=== PATIENT | female | born 1990 | race Caucasian/White ===

== ENCOUNTER 2019-03-08 13:12 | Inpatient (IN) | payer OTHER ==
[2019-03-08 16:00] VITALS: BMI 21.2
--- NOTE | 2019-03-08 16:54 | HP ---
COWS - Scale Resting Pulse: 0= IN 80 or Below Sweatin= Chills/Flushing Restless Observation: 1= Difficult to Sit Still Pupil Size: 0= Normal to Room Light Bone or Joint Aches: 1= Mild Discomfort Runny Nose/ Eye Tearin= None GI Upset > 30mins: 2= Nausea/Diarrhea Tremor Observation: 2= Slight Tremor Visible Yawning Observation: 0= None Anxiety or Irritability: 2=Irritable/Anxious Goose Flesh Skin: 3=Piloerection COWS Score: 12 CIWA Score - Admission Criteria OASAS Guidelines: Admission for Medically Managed Detox: Requires at least one of the followin. CIWA greater than 12 2. Seizures within the past 24 hours 3. Delirium tremens within the past 24 hours 4. Hallucinations within the past 24 hours 5. Acute intervention needed for co occurring medical disorder 6. Acute intervention needed for co occurring psychiatric disorder 7. Severe withdrawal that cannot be handled at a lower level of care (continued vomiting, continued diarrhea, abnormal vital signs) requiring intravenous medication and/or fluids 8. Admitting History and Physical - Admission Chief Complaint: Wants to stay clean off Heroine and cocaine use History of Present Illness: Pt is a 28 yo F with PMHx of SCD presenting for dtox from Heroin and cocaine use Pt has been using iv heroine/cocaine since . Has had abscesses on hands in pst. Now injects in neck Wants detox, rehab then housing. Said to have been HIV neg Dec 05, when locked, Neg PPD Heroine: Started at 15 Uses 3-4 bundles, iv route, does not share needles or reuse needled Has had detox [facility] Jan 15, 2019- 5 days Relapsed immediately after leaving after detox uses alone Cocaine: Started at 15 3-4 g use iv does not share needles or reuse needled Has had detox [facility] Jan 15, 2019- 5 days Relapsed immediately after leaving after detox uses alone Never used benzos, or methadone Used one pill [id number] days Marijuana: Started at 15 Last used on wednesday/wednesday when she was partying before starting rehab Methadone in system Denies using methadone knowingly except if at the [facility] party Cigarettes; Started at 15 1PPD Pt had been in foster- aged out at 19 11th grade HS 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 [id number] Last job was 1 year ago No problems with law Locked up Dec 05 for stealing to get high Dec 15, 2018 PSHx: None Social hx: Homeless x 4 years Reprod: (11year old son) LMP- pt says she has very irregular menses with IUD (possibly copper) cannot remeber date History Source: Patient Limitations to Obtaining History: No Limitations - Past Medical History ...: 1 ...Para: 1 (8 year old son) - Smoking History Smoking history: Current some day smoker Have you smoked in the past 12 months: Yes Aproximately how many cigarettes per day: 20 - Alcohol/Substance Use Hx Alcohol Use: No History of Substance Use: reports: Cocaine, Heroin Date of Last Use: 03/07/19 - Social History Do you think of yourself as: Other (Masturbation-3years since sex with a male) ADL: Independent History of Recent Travel: No Admission [facility] - [facility] Allergies/Adverse Reactions: Allergies Allergy/AdvReac Type Severity Reaction Status Date / Time No Known Allergies Allergy Verified 03/08/19 15:55 Exam Limitations: No Limitations - Ebola screening Have you traveled outside of the country in the last 21 days: No Have you had contact with anyone from an Ebola affected area: No Do you have a fever: No - Review of Systems Constitutional: Chills, Fever EENT: reports: Other (Dental problems) Respiratory: reports: No Symptoms reported Cardiac: reports: No Symptoms Reported GI: reports: No Symptoms Reported, Nausea : reports: No Symptoms Reported Musculoskeletal: reports: No Symptoms Reported Integumentary: reports: Other (pinches skin on R cheek and ear when high with healing scabs) Neuro: reports: Tremors Endocrine: reports: No Symptoms Reported Hematology: reports: No Symptoms Reported Psychiatric: reports: No Sypmtoms Reported Patient History - Patient Medical History Hx Anemia: No Hx Asthma: No Hx Chronic Obstructive Pulmonary Disease (COPD): No Hx Cancer: No Hx Cardiac Disorders: No Hx Congestive Heart Failure: No Hx Hypertension: No Hx Hypercholesterolemia: No Hx Pacemaker: No HX Cerebrovascular Accident: No Hx Seizures: No Hx Dementia: No Hx Diabetes: No Hx Gastrointestinal Disorders: No Hx Liver Disease: No Hx Genitourinary Disorders: No Hx Sexually Transmitted Disorders: No Hx Renal Disease (ESRD): No Hx Thyroid Disease: No Hx Human Immunodeficiency Virus (HIV): No Hx Hepatitis C: No Hx Depression: No - Patient Surgical History Past Surgical History: No Hx Neurologic Surgery: No Hx Cataract Extraction: No Hx Cardiac Surgery: No Hx Lung Surgery: No Hx Breast Surgery: No Hx Breast Biopsy: No Hx Abdominal Surgery: No Hx Appendectomy: No Hx Cholecystectomy: No Hx Genitourinary Surgery: No Hx Section: No Hx Orthopedic Surgery: No Hx Hysterectomy: No Anesthesia Reaction: No - PPD History Previous Implant?: Yes Documented Results: Negative w/o proof PPD to be Administered?: Yes - Reproductive History Patient is a Female of Child Bearing Age (11 -55 yrs old): Yes Patient : No - Smoking Cessation Smoking history: Current every day smoker Have you smoked in the past 12 months: Yes Aproximately how many cigarettes per day: 20 Initiated information on smoking cessation: Yes 'Breaking Loose' booklet given: 03/08/19 - Substance & Tx. History Hx Alcohol Use: No Hx Substance Use: Yes Substance Use Type: Cocaine, Heroin, Marijuana, Opiates - Substances abused Cocaine Substance route: Injection Frequency: Daily Amount used: 3-4 bundles Age of first use: 15 Date of last use: 03/07/19 Heroin Substance route: Injection Frequency: Daily Amount used: 3-4 bundles Age of first use: 15 Date of last use: 03/07/19 Admission Physical Exam [facility] - Vital Signs Vital Signs: Vital Signs - 24 hr 03/08/19 15:56 Temperature 97.0 F L Pulse Rate 60 Respiratory 18 Rate Blood Pressure 134/80 - Physical General Appearance: Yes: Anxious HEENTM: Yes: EOMI Respiratory: Yes: Chest Non-Tender, Lungs Clear Neck: Yes: Other (Axillary nodes present) Cardiology: Yes: Regular Rhythm, Regular Rate, S1, S2 Abdominal: Yes: Normal Bowel Sounds Genitourinary: Yes: Within Normal Limits Back: Yes: Within Normal Limits Musculoskeletal: Yes: Within Normal Limits Extremities: Yes: Within Normal Limits Neurological: Yes: Fully Oriented, Alert, Motor Strength 5/5 Integumentary: Yes: Within Normal Limits (healing excoriation R cheek and R ear) , Other Cleared for Admission [facility] - Detox or Rehab [facility] Level of Care: Medically Managed Detox Regimen/Protocol: Methadone Claeared for Rehab Admission: No Screened but not Admitted - Documentation of Visit Screened but not Admitted: No Left Prior to Completion of Assessment: No Insurance Authorization Denied: No Patient Does Not Meet Criteria for Admission: No Alternative Treatment/[facility] Info Provided: No Breathalyzer - Breathalyzer Breathalyzer: 0 Vital Signs - Vital Signs Vital signs refused: No Temperature: 97.0 F Temperature source: Oral Pulse Rate: 60 Respiratory Rate: 18 Blood Pressure: 134/80 Blood Pressure position: Sitting - Height Height: 1.57 m - Weight Weight: 52.617 kg - BMI Body Mass Index (BMI): 21.2 - Bowel Function Bowel Movement: Yes POC Urine test - Control test control: No Urine Drug Screen - Results Drug screen NEGATIVE: No Urine drug screen results: JENISE-Cocaine, MTD-Methadone, BZO-Benzodiazepines Inpatient Rehab Admission - Rehab Decision to Admit Inpatient rehab admission?: No
[2019-03-08] MEDS ORDERED: METHOCARBAMOL 500 MG TABLET PO PRN (17:24)
[2019-03-08] MEDS ORDERED: ACETAMINOPHEN 325 MG TABLET (FP) PO PRN ×2 (17:24)
[2019-03-08] MEDS ORDERED: cloNIDine HCL 0.1 MG TABLET PO PRN (17:24)
[2019-03-08] MEDS ORDERED: NICOTINE POLACRILEX 4 MG GUM BUC PRN (17:24)
[2019-03-08] MEDS ORDERED: MAGNESIUM HYDROX 2400MG/30ML ORAL SUSPENSION 30 ML CUP PO PRN (17:24)
[2019-03-08] MEDS ORDERED: METHADONE HCL 10 MG TABLET (FOR DETOX USE ONLY) PO ONE (17:24)
[2019-03-08] MEDS ORDERED: MAGNESIUM CITRATE 300 ML BOTTLE PO PRN (17:24)
[2019-03-08] MEDS ORDERED: MAG HYDROX/AL HYDROX/SIMETH 30 ML UNIT-DOSE CUP PO PRN (17:24)
[2019-03-08] MEDS ORDERED: BISMUTH SUBSALICYLATE 524 MG/30 ML UD PO PRN (17:24)
[2019-03-08] MEDS ORDERED: MENTHOL/PHENOL 1 EACH UD MM PRN (17:24)
[2019-03-08] MEDS ORDERED: NICOTINE POLACRILEX 2 MG GUM BUC PRN (17:24)
[2019-03-08] MEDS ORDERED: IBUPROFEN 400 MG TABLET (FP) PO PRN ×2 (17:24→17:28)
[2019-03-08] MEDS: THIAMINE HCL 100 MG TABLET (FP) PO SCH (22:12)
[2019-03-08] MEDS: MELATONIN 5 MG TABLETS PO PRN (22:14)
[2019-03-08] MEDS: hydrOXYzine PAMOATE 25 MG CAPSULE (FP) PO PRN (22:14)
--- NOTE | 2019-03-09 08:11 | PN ---
Teaching Attending Note Name of Resident: Atiya Brownlee ATTENDING PHYSICIAN STATEMENT I saw and evaluated the patient. I reviewed the resident's note and discussed the case with the resident. I agree with the resident's findings and plan as documented. SUBJECTIVE: Agree with resident's subjective findings OBJECTIVE: Agree with resident's objective findings ASSESSMENT AND PLAN: Agree with plan to admit patient. Dr. Muro
[2019-03-09] MEDS ORDERED: METHADONE HCL 5 MG TABLET (FOR DETOX USE ONLY) PO ONE (10:00)
[2019-03-09] MEDS: PRENATAL VITAMINS W/ FOLIC ACID TABLET (FP) PO SCH (10:24)
--- NOTE | 2019-03-09 12:00 | PN ---
[facility] COWS - Scale Resting Pulse: 0= [place] 80 or Below Sweatin= Chills/Flushing Restless Observation: 1= Difficult to Sit Still Pupil Size: 0= Normal to Room Light Bone or Joint Aches: 1= Mild Discomfort Runny Nose/ Eye Tearin= Runny Nose/Eyes GI Upset > 30mins: 1= Stomach Cramp Tremor Observation of Outstretched Hands: 1= Tremor [place], Not Seen Yawning Observation: 1= 1-2x During Session Anxiety or Irritability: 2=Irritable/Anxious Goose Flesh Skin: 0=Smooth Skin COWS Score: 10 S Progress Note (SOAP) Subjective: sweats shakes interrupted sleep body aches irritable chills Objective: 03/09/19 11:59 Vital Signs Temperature 98.1 F 03/09/19 10:30 Pulse Rate 56 L 03/09/19 10:30 Respiratory Rate 18 03/09/19 10:30 Blood Pressure 111/53 L 03/09/19 10:30 O2 Sat by Pulse Oximetry (%) labs pending [id number] ambulating no acute distress Assessment: 03/09/19 12:00 withdrawal sx Plan: continue detox increase fluids pending labs
[2019-03-09] MEDS: BACITRACIN 15 GM TUBE TOPICAL OINTMENT TP SCH (15:45)
[2019-03-09] MEDS: hydrOXYzine PAMOATE 25 MG CAPSULE (FP) PO PRN (21:54)
[2019-03-09] MEDS: THIAMINE HCL 100 MG TABLET (FP) PO SCH (21:54)
[2019-03-09] MEDS: MELATONIN 5 MG TABLETS PO PRN (21:55)
[2019-03-10] MEDS: PRENATAL VITAMINS W/ FOLIC ACID TABLET (FP) PO SCH (09:38)
[2019-03-10] MEDS: BACITRACIN 15 GM TUBE TOPICAL OINTMENT TP SCH (09:39)
[2019-03-10] MEDS ORDERED: METHADONE HCL 10 MG TABLET (FOR DETOX USE ONLY) PO ONE (10:00)
[2019-03-10] MEDS: hydrOXYzine PAMOATE 25 MG CAPSULE (FP) PO PRN ×2 (14:40→22:02)
--- NOTE | 2019-03-10 16:08 | PN ---
[facility] COWS - Scale Resting Pulse: 0= ID 80 or Below Sweatin= No chills or Flushing Restless Observation: 0= Sits Still Pupil Size: 0= Normal to Room Light Bone or Joint Aches: 1= Mild Discomfort Runny Nose/ Eye Tearin= Nasal Congestion GI Upset > 30mins: 0= None Tremor Observation of Outstretched Hands: 1= Tremor [place], Not Seen Yawning Observation: 0= None Anxiety or Irritability: 1=Feels Anxious/Irritable Goose Flesh Skin: 0=Smooth Skin COWS Score: 4 BHS Progress Note (SOAP) Subjective: alert,irritable,anxious,interrupted sleep Objective: 03/10/19 16:07 Vital Signs Temperature 98.4 F 03/10/19 13:31 Pulse Rate 66 03/10/19 13:31 Respiratory Rate 18 03/10/19 13:31 Blood Pressure 96/63 03/10/19 13:31 O2 Sat by Pulse Oximetry (%) Assessment: 03/10/19 16:07 withdrawal symptom Plan: continue detox methadone regimen,discharge in am
[2019-03-10] MEDS: THIAMINE HCL 100 MG TABLET (FP) PO SCH (22:00)
[2019-03-10] MEDS: MELATONIN 5 MG TABLETS PO PRN (22:01)
[2019-03-11] MEDS ORDERED: METHADONE HCL 5 MG TABLET (FOR DETOX USE ONLY) PO ONE (06:00)
[2019-03-11 09:41] VITALS: BP 100/59; PULSE 65; TEMP 97.8
--- NOTE | 2019-03-11 15:21 | DS ---
[facility] Detox Discharge Summary Admission Date: 03/08/19 Discharge Date: 03/11/19 - History Present History: Cocaine Dependence, Opioid Dependence Additional Comments: Pt is medically cleared and is discharged today. Pt completed the detox protocol. Pt is instructed to follow-up with [facility] outpatient program and also to follow-up with her pmd. Pt verbalized understanding. Pt is alert and oriented x3 and in no respiratory distress. Pertinent Past History: H/O heroin and cocaine use disorder. - Physical Exam Results Vital Signs: Vital Signs Temperature 97.8 F 03/11/19 09:40 Pulse Rate 65 03/11/19 09:40 Respiratory Rate 18 03/11/19 09:40 Blood Pressure 100/59 L 03/11/19 09:40 O2 Sat by Pulse Oximetry (%) Vital Signs 03/11/19 09:40 Temperature 97.8 F Pulse Rate 65 Respiratory 18 Rate Blood Pressure 100/59 L Pertinent Admission Physical Exam Findings: withdrawal symptoms. - Treatment Hospital Course: Detox Protocol Followed, Detoxed Safely, Responded well, Discharged Condition Good - Medication Discharge Medications: Ambulatory Orders NK [No Known Home Medication] 03/08/19 - Diagnosis (1) Heroin use disorder, mild, abuse Status: Acute (2) Cocaine use disorder, mild, abuse Status: Acute - AMA Did Patient Leave Against Medical Advice: No
== END 2019-03-11 09:57 | disposition home or self-care (01) | DRG 773 ==
LOC: YASAS 13:12 → Y6N 18:12 → Y3N 03-09 21:58
PROVIDERS: ADMIT Allergy & Immunology; ATTEND Allergy & Immunology
PROC: HZ2ZZZZ Detoxification Services for Substance Abuse Treatment (ICD-10-PCS; principal; 2019-03-08)
DX: F11.23 Opioid dependence with withdrawal (principal); F14.20 Cocaine dependence, uncomplicated; F12.10 Cannabis abuse, uncomplicated; F17.210 Nicotine dependence, cigarettes, uncomplicated; N92.5 Other specified irregular menstruation; Z97.5 Presence of (intrauterine) contraceptive device
CPT/HCPCS: 81025; J0735

== ENCOUNTER 2021-05-23 17:26 | Inpatient (IN) | payer OTHER ==
[2021-05-23 19:19] VITALS: BMI 21.5
[2021-05-24] MEDS ORDERED: MAGNESIUM HYDROX 2400MG/30ML ORAL SUSPENSION 30 ML CUP PO PRN (00:09)
[2021-05-24] MEDS ORDERED: IBUPROFEN 400 MG TABLET (FP) PO PRN (00:09)
[2021-05-24] MEDS ORDERED: BISMUTH SUBSALICYLATE 524 MG/30 ML PO PRN (00:09)
[2021-05-24] MEDS ORDERED: ACETAMINOPHEN 325 MG TABLET (FP) PO PRN ×2 (00:09)
[2021-05-24] MEDS ORDERED: MAGNESIUM CITRATE 300 ML BOTTLE PO PRN (00:09)
[2021-05-24] MEDS ORDERED: NICOTINE POLACRILEX 2 MG GUM BUC PRN (00:09)
[2021-05-24] MEDS ORDERED: MENTHOL/PHENOL 1 EACH UD MM PRN (00:09)
[2021-05-24] MEDS ORDERED: hydrOXYzine PAMOATE 25 MG CAPSULE (FP) PO PRN (00:09)
[2021-05-24] MEDS ORDERED: ONDANSETRON *ODT* 4 MG TABLET SL PRN (00:09)
[2021-05-24] MEDS ORDERED: methaDONE HCL 10 MG TABLET (FOR DETOX USE ONLY) PO ONE (00:09)
[2021-05-24] MEDS ORDERED: MAG HYDROX/AL HYDROX/SIMETH 30 ML UNIT-DOSE CUP PO PRN (00:09)
[2021-05-24] MEDS ORDERED: diazePAM 5 MG TABLET PO ONE (00:23)
[2021-05-24] MEDS: guaiFENesin 200 MG/10 ML 10 ML UNIT-DOSE CUPS PO SCH ×4 (01:11→23:31)
[2021-05-24] MEDS: MELATONIN 5 MG TABLETS PO PRN (01:11)
[2021-05-24] MEDS: CEPHALEXIN MONOHYDRATE 500 MG CAPSULE (UD) PO SCH ×4 (06:18→23:30)
[2021-05-24] MEDS: PRENATAL VITAMINS W/ FOLIC ACID TABLET (FP) PO SCH (11:13)
[2021-05-24] MEDS: BACITRACIN 0.9 GM PACKET TP SCH ×2 (11:13→23:30)
[2021-05-24] MEDS: methaDONE HCL 10 MG TABLET (FOR DETOX USE ONLY) PO ONE ×2 (11:49→13:27)
[2021-05-24] MEDS: METHOCARBAMOL 500 MG TABLET PO PRN (17:42)
[2021-05-24] MEDS: NICOTINE 10 MG CARTRIDGE (INHALER) IH PRN (17:55)
[2021-05-24] MEDS: cloNIDine HCL 0.1 MG TABLET PO PRN (19:05)
[2021-05-24] MEDS: THIAMINE HCL 100 MG TABLET (FP) PO SCH (23:30)
[2021-05-25] MEDS: CEPHALEXIN MONOHYDRATE 500 MG CAPSULE (UD) PO SCH ×4 (06:35→23:37)
[2021-05-25] MEDS: BACITRACIN 0.9 GM PACKET TP SCH ×2 (10:45→22:24)
[2021-05-25] MEDS: PRENATAL VITAMINS W/ FOLIC ACID TABLET (FP) PO SCH (10:45)
[2021-05-25] MEDS ORDERED: methaDONE HCL 10 MG TABLET (FOR DETOX USE ONLY) ONE (11:12)
[2021-05-25] MEDS: guaiFENesin 200 MG/10 ML 10 ML UNIT-DOSE CUPS PO SCH ×3 (11:19→23:37)
[2021-05-25] MEDS: cloNIDine HCL 0.1 MG TABLET PO PRN (17:07)
[2021-05-25] MEDS: THIAMINE HCL 100 MG TABLET (FP) PO SCH (22:24)
[2021-05-26] MEDS: CEPHALEXIN MONOHYDRATE 500 MG CAPSULE (UD) PO SCH ×4 (05:07→23:58)
[2021-05-26] MEDS ORDERED: methaDONE HCL 10 MG TABLET (FOR DETOX USE ONLY) PO ONE (10:00)
[2021-05-26] MEDS: PRENATAL VITAMINS W/ FOLIC ACID TABLET (FP) PO SCH (10:33)
[2021-05-26] MEDS: BACITRACIN 0.9 GM PACKET TP SCH ×2 (10:33→22:40)
[2021-05-26] MEDS: METHOCARBAMOL 500 MG TABLET PO PRN (10:33)
[2021-05-26] MEDS: guaiFENesin 200 MG/10 ML 10 ML UNIT-DOSE CUPS PO SCH (10:33)
[2021-05-26] MEDS: cloNIDine HCL 0.1 MG TABLET PO PRN (10:34)
[2021-05-26] MEDS: NICOTINE 10 MG CARTRIDGE (INHALER) IH PRN (12:32)
[2021-05-26] MEDS ORDERED: guaiFENesin 200 MG/10 ML 10 ML UNIT-DOSE CUPS PO PRN (15:16)
[2021-05-26] MEDS: THIAMINE HCL 100 MG TABLET (FP) PO SCH (22:40)
[2021-05-26] MEDS: MELATONIN 5 MG TABLETS PO PRN (22:40)
[2021-05-27] MEDS: CEPHALEXIN MONOHYDRATE 500 MG CAPSULE (UD) PO SCH ×2 (06:25→12:35)
[2021-05-27] MEDS ORDERED: methaDONE HCL 10 MG TABLET (FOR DETOX USE ONLY) ONE ×2 (08:38→10:19)
[2021-05-27] MEDS: BACITRACIN 0.9 GM PACKET TP SCH (10:20)
[2021-05-27] MEDS: METHOCARBAMOL 500 MG TABLET PO PRN (10:21)
[2021-05-27] MEDS: PRENATAL VITAMINS W/ FOLIC ACID TABLET (FP) PO SCH (10:26)
[2021-05-27 12:52] VITALS: BP 111/73; PULSE 86; TEMP 97.2
[2021-05-28] MEDS ORDERED: methaDONE HCL 10 MG TABLET (FOR DETOX USE ONLY) PO ONE (10:00)
== END 2021-05-27 13:30 | disposition home or self-care (01) | DRG 773 ==
LOC: YASAS 17:26 → Y3N 22:12
PROVIDERS: ADMIT Allergy & Immunology; ATTEND Allergy & Immunology
PROC: HZ2ZZZZ Detoxification Services for Substance Abuse Treatment (ICD-10-PCS; principal; 2021-05-23)
DX: F11.23 Opioid dependence with withdrawal (principal); F14.20 Cocaine dependence, uncomplicated; F12.10 Cannabis abuse, uncomplicated; F17.210 Nicotine dependence, cigarettes, uncomplicated; F31.9 Bipolar disorder, unspecified; L89.892 Pressure ulcer of other site, stage 2; L98.8 Other specified disorders of the skin and subcutaneous tissue; D57.3 Sickle-cell trait
CPT/HCPCS: 81025; C9803; J0735; U0003; U0005

== ENCOUNTER 2021-06-26 20:33 | Inpatient (IN) | payer OTHER ==
[2021-06-26] MEDS ORDERED: VANCOMYCIN 1 GM in D5W (PRE-DOCKED) 1,000 MG/250 ML IVPB ONE (21:16)
[2021-06-26] MEDS ORDERED: PIPERACILLIN/TAZOB 4.5 GM 4.5 GM in DEXTROSE 5%-WATER 100 ML IVPB ONE (21:17)
[2021-06-26] MEDS ORDERED: PIPERACILLIN/TAZOB 4.5 GM 4.5 GM/100 ML BAG IVPB ONE (21:22)
[2021-06-26] MEDS ORDERED: VANCOMYCIN 1 GRAM (PRE-DOCKED) 1,000 MG/250 ML BAG IVPB ONE (21:22)
[2021-06-26] MEDS ORDERED: SODIUM CHLORIDE 0.9% 500 ML INFUS.BAG IV ONE ×2 (21:51→23:12)
[2021-06-26] MEDS ORDERED: ACETAMINOPHEN 1000 MG/100 ML BAG IVPB ONE (22:13)
[2021-06-26] MEDS ORDERED: ACETAMINOPHEN INJECTION 100 ML IVPB ONE (22:14)
[2021-06-26 22:22] LABS: BASO % 0.2 % (0-2.0); EOS % 0.7 % (0-4.5); HEMATOCRIT 27.8 % (32.4-45.2); HEMOGLOBIN 9.4 GM/dL (10.7-15.3); LYMPH % 14.8 % (8-40); MCH 24.4 pg (25.7-33.7); MCHC 33.8 g/dl (32.0-36.0); MEAN CELL VOLUME 72.2 fl (80-96); MEAN PLT VOLUME 7.7 fl (7.5-11.1); MONO % 9.7 % (3.8-10.2); NEUT % 74.6 % (42.8-82.8); PLATELET COUNT 272 10^3/uL (134-434); RBC 3.85 M/mm3 (3.60-5.2); RDW 17.6 % (11.6-15.6); VENOUS BASE EXCESS 3.7 mmol/L (-2-2); VENOUS O2 SATURATION 81.4 % (70-80); VENOUS PCO2 44.7 mmHg (38-52); VENOUS PH 7.421 (7.310-7.410); WHITE BLOOD COUNT 8.2 K/mm3 (4.0-10.0)
[2021-06-26 22:30] LABS: INR 1.07 (0.83-1.09); PROTHROMBIN TIME (PATIENT) 12.3 SEC (9.7-13.0)
[2021-06-26 22:33] LABS: ACTIVATED PTT 32.8 SECONDS (25.2-36.5)
[2021-06-26 22:42] LABS: CHLORIDE 107 mmol/L (98-107); SODIUM 143 mmol/L (136-145)
[2021-06-26 22:44] LABS: ALBUMIN 3.4 g/dl (3.4-5.0); ANION GAP 7 MMOL/L (8-16); BLOOD UREA NITROGEN 10.7 mg/dL (7-18); CALCIUM 9.2 mg/dL (8.5-10.1); CO2 29 mmol/L (21-32); GLUCOSE,RANDOM 80 mg/dL (74-106)
[2021-06-26 22:48] LABS: SGOT/AST 22 U/L (15-37); SGPT/ALT 22 U/L (13-61)
[2021-06-26 22:49] LABS: BILIRUBIN,TOTAL 0.2 mg/dL (0.2-1); TOT PROT 7.5 g/dl (6.4-8.2)
[2021-06-26 22:50] LABS: ALK PHOS 76 U/L (45-117)
[2021-06-26 22:52] LABS: LACTIC ACID 2.6 mmol/L (0.4-2.0)
[2021-06-26] MEDS ORDERED: KETOROLAC TROMETHAMINE 30 MG/1 ML VIAL IVPUSH ONE (23:12)
[2021-06-26] MEDS ORDERED: KETOROLAC TROMETHAMINE 30 MG/1 ML VIAL ONE (23:14)
[2021-06-26] MEDS ORDERED: DICYCLOMINE HCL 20 MG TABLET PO ONE (23:18)
[2021-06-26 23:26] LABS: ERYTHROCYTE SEDIMENTATION RATE 48 mm/hr (0-20)
[2021-06-26] MEDS ORDERED: DICYCLOMINE HCL 10 MG CAPSULE ONE (23:51)
[2021-06-27] MEDS ORDERED: ACETAMINOPHEN 325 MG TABLET (FP) PO PRN (01:11)
[2021-06-27] MEDS: SODIUM CHLORIDE 1,000 ML IV SCH ×3 (03:51→13:14)
[2021-06-27 05:24] VITALS: BMI 21.4
[2021-06-27] MEDS ORDERED: VANCOMYCIN 1 GRAM (PRE-DOCKED) 1,000 MG/250 ML BAG IVPB SCH ×2 (06:00→20:00)
[2021-06-27] MEDS ORDERED: VANCOMYCIN 1 GM in D5W (PRE-DOCKED) 1,000 MG/250 ML IVPB SCH (06:00)
[2021-06-27] MEDS ORDERED: SODIUM CHLORIDE 1,000 ML IV STA (06:27)
[2021-06-27] MEDS: NICOTINE 21 MG/24 HOURS TOPICAL PATCH TD SCH ×2 (10:15→10:20)
[2021-06-27] MEDS: ENOXAPARIN NA (PORCINE) 40 MG/0.4 ML DISP.SYRIN SQ SCH (10:15)
[2021-06-27 12:39] LABS: EPI CELLS 21 /uL (0-25.1); HYALINE CASTS 1 /uL (0-3.1); PH,URINE 6.5 (5.0-8.0); URINE APPEARANCE CLEAR; URINE BACTERIA 70 /uL (0-1359); URINE BILIRUBIN NEGATIVE (NEGATIVE); URINE COLOR YELLOW; URINE GLUCOSE (UA) NEGATIVE (NEGATIVE); URINE KETONE NEGATIVE (NEGATIVE); URINE LEUK ESTERASE TRACE (NEGATIVE); URINE NITRITE NEGATIVE (NEGATIVE); URINE PROTEIN NEGATIVE (NEGATIVE); URINE RBC 3 /uL (0-23.9); URINE WBC 39 /uL (0-25.8)
[2021-06-27 12:59] LABS: YEAST NON SEEN (NEGATIVE)
[2021-06-27] MEDS ORDERED: methaDONE HCL 10 MG TABLET PO ONE (14:46)
[2021-06-27 17:14] LABS: BASO % 0.6 % (0-2.0); EOS % 1.7 % (0-4.5); HEMATOCRIT 28.6 % (32.4-45.2); HEMOGLOBIN 9.3 GM/dL (10.7-15.3); LYMPH % 22.4 % (8-40); MCH 23.8 pg (25.7-33.7); MCHC 32.3 g/dl (32.0-36.0); MEAN CELL VOLUME 73.7 fl (80-96); MEAN PLT VOLUME 8.3 fl (7.5-11.1); MONO % 8.8 % (3.8-10.2); NEUT % 66.5 % (42.8-82.8); PLATELET COUNT 240 10^3/uL (134-434); RBC 3.88 M/mm3 (3.60-5.2); RDW 17.8 % (11.6-15.6); WHITE BLOOD COUNT 5.7 K/mm3 (4.0-10.0)
[2021-06-27] MEDS ORDERED: DEXTROSE 5%-WATER - 50 ML IVPB ONE (17:17)
[2021-06-27] MEDS ORDERED: PIPERACILLIN/TAZOBACTAM 3.375 GM VIAL IVPB ONE (17:17)
[2021-06-27] MEDS: PIPERACILLIN/TAZOB 3.375 GM 3.375 GM in DEXTROSE 5%-WATER - 50 ML IVPB SCH (17:19)
[2021-06-27 17:34] LABS: MAGNESIUM 2.1 mg/dL (1.8-2.4)
[2021-06-27 17:35] LABS: ALBUMIN 2.8 g/dl (3.4-5.0); CALCIUM 8.8 mg/dL (8.5-10.1)
[2021-06-27 17:37] LABS: BLOOD UREA NITROGEN 8.8 mg/dL (7-18)
[2021-06-27 17:39] LABS: CREATININE 0.8 mg/dL (0.55-1.3); PHOSPHOROUS 1.9 mg/dL (2.5-4.9)
[2021-06-27 17:41] LABS: BILIRUBIN,TOTAL 0.2 mg/dL (0.2-1)
[2021-06-27 17:42] LABS: TOT PROT 6.5 g/dl (6.4-8.2)
[2021-06-28] MEDS: VANCOMYCIN 1 GRAM (PRE-DOCKED) 1,000 MG/250 ML BAG IVPB SCH ×2 (02:50→14:15)
[2021-06-28] MEDS ORDERED: DEXTROSE 5%-WATER - 50 ML IVPB ONE ×3 (04:37→17:49)
[2021-06-28] MEDS ORDERED: PIPERACILLIN/TAZOBACTAM 3.375 GM VIAL IVPB ONE ×3 (04:37→17:49)
[2021-06-28] MEDS: PIPERACILLIN/TAZOB 3.375 GM 3.375 GM in DEXTROSE 5%-WATER - 50 ML IVPB SCH ×3 (04:43→17:49)
[2021-06-28] MEDS ORDERED: methaDONE HCL 10 MG TABLET ONE (09:52)
[2021-06-28] MEDS: NICOTINE 21 MG/24 HOURS TOPICAL PATCH TD SCH (09:54)
[2021-06-28] MEDS: ENOXAPARIN NA (PORCINE) 40 MG/0.4 ML DISP.SYRIN SQ SCH (10:03)
[2021-06-28] MEDS: SODIUM CHLORIDE 1,000 ML IV SCH (21:34)
[2021-06-28] MEDS ORDERED: MELATONIN 5 MG TABLETS PO SCH ×3 (22:00)
[2021-06-29] MEDS ORDERED: PIPERACILLIN/TAZOBACTAM 3.375 GM VIAL IVPB ONE ×2 (03:01→10:43)
[2021-06-29] MEDS ORDERED: DEXTROSE 5%-WATER - 50 ML IVPB ONE ×2 (03:01→10:43)
[2021-06-29] MEDS: VANCOMYCIN 1 GRAM (PRE-DOCKED) 1,000 MG/250 ML BAG IVPB SCH (03:06)
[2021-06-29] MEDS: PIPERACILLIN/TAZOB 3.375 GM 3.375 GM in DEXTROSE 5%-WATER - 50 ML IVPB SCH ×2 (03:06→10:54)
[2021-06-29 06:12] VITALS: BP 115/67; PULSE 63; TEMP 98.5
[2021-06-29] MEDS ORDERED: methaDONE HCL 10 MG TABLET PO ONE (10:00)
[2021-06-29] MEDS: NICOTINE 21 MG/24 HOURS TOPICAL PATCH TD SCH (10:56)
[2021-06-29] MEDS: ENOXAPARIN NA (PORCINE) 40 MG/0.4 ML DISP.SYRIN SQ SCH (10:56)
[2021-07-01] MEDS ORDERED: methaDONE HCL 10 MG TABLET PO ONE (10:00)
== END 2021-06-29 13:40 | disposition left against medical advice (07) | DRG 383 ==
LOC: JER 20:33 → JERBED 23:08 → J4S 06-27 04:40
PROVIDERS: ADMIT Internal Medicine; ATTEND Internal Medicine
DX: L03.116 Cellulitis of left lower limb (principal); I96 Gangrene, not elsewhere classified; L97.929 Non-pressure chronic ulcer of unspecified part of left lower leg with unspecified severity; L03.113 Cellulitis of right upper limb; F11.23 Opioid dependence with withdrawal; F14.20 Cocaine dependence, uncomplicated; D50.9 Iron deficiency anemia, unspecified; R01.1 Cardiac murmur, unspecified; F17.210 Nicotine dependence, cigarettes, uncomplicated; Z59.00 Homelessness unspecified; R45.1 Restlessness and agitation
CPT/HCPCS: 36415; 71045-TC-FY; 73110-TC-RT-FY; 73130-TC-RT-FY; 73590-TC-LT-FY; 76937; 80053; 81003; 82550; 82553; 82803; 83540; 83605; 83735; 84100; 84484; 84702; 84703; 85025; 85610; 85651; 85730; 86140; 86850; 86900; 86901; 87040; 87086; 93005; 93010; 93306-TC; 93308; 99285-25; C9803; U0003; U0005